=== PATIENT | male | born 1995 | race Two or more races ===

== ENCOUNTER 2023-02-18 23:16 | Emergency (ER) | payer OTHER ==
[2023-02-18 23:21] VITALS: BP 126/80; PULSE 102; RESP 18; TEMP 98.2; BMI 25.8
[2023-02-18] MEDS ORDERED: IBUPROFEN 600 MG TABLET (FP) PO ONE ×2 (23:37→23:45)
== END 2023-02-19 00:18 | disposition home or self-care (01) ==
LOC: JER 23:16
DX: S49.91XA Unspecified injury of right shoulder and upper arm, initial encounter (principal); W17.89XA Other fall from one level to another, initial encounter; Y93.69 Activity, other involving other sports and athletics played as a team or group
CPT/HCPCS: 73030-TC-RT-FY; 99283-25